=== PATIENT | male | born 1965 | race Caucasian/White ===

== ENCOUNTER 2022-10-08 10:13 | Emergency (ER) | payer OTHER ==
[2022-10-08] MEDS ORDERED: Ibuprofen 800 MG Tab PO ONE (10:42)
[2022-10-08] MEDS ORDERED: Cyclobenzaprine 10 MG Tab PO ONE (10:42)
[2022-10-08] MEDS ORDERED: oxyCODONE 5 MG Tab PO ONE (10:42)
[2022-10-08 10:47] VITALS: BP 118/96; PULSE 115
[2022-10-08] MEDS ORDERED: Cyclobenzaprine 10 MG Tab ONE (11:06)
[2022-10-08 11:49] LABS: APPEARANCE,URINE CLEAR (CLEAR); BILIRUBIN,URINE NEGATIVE (NEGATIVE); COLOR,URINE YELLOW; GLUCOSE,URINE NEGATIVE (NEGATIVE); KETONES,URINE NEGATIVE (NEGATIVE); LEUKOCYTE ESTERASE,URINE TRACE (NEGATIVE); NITRITE,URINE NEGATIVE (NEGATIVE); OCCULT BLOOD,URINE TRACE-INTACT (NEGATIVE); PH,URINE 5.5 (5.0-8.0); PROTEIN,URINE NEGATIVE (NEGATIVE); UROBILINOGEN,URINE 0.2 E.U./dL (0.2-1.0)
[2022-10-08 11:56] LABS: RBC,URINE 0-5 /HPF; SQUAMOUS EPITHELIAL CELLS,UR RARE /HPF; WBC,URINE 0-5 /HPF
[2022-10-08] MEDS ORDERED: Ketorolac 30 MG/ML SDV ONE (12:18)
[2022-10-08] MEDS ORDERED: Ketorolac 60 MG/2 ML SDV IM ONE (12:19)
== END 2022-10-08 13:00 | disposition home or self-care (01) ==
LOC: LB.ED 10:13
DX: M54.50 Low back pain, unspecified (principal); Z88.0 Allergy status to penicillin
CPT/HCPCS: 81001; 87086; 99283; A9270; J1885